=== PATIENT | male | born 1950 | race Hispanic/Latino ===

== ENCOUNTER 2017-12-06 12:46 | Inpatient (IN) | payer MEDICARE, OTHER ==
[2017-12-06] MEDS ORDERED: Sodium Chloride 0.9% 1,000 ML IV STA (13:06)
--- NOTE | 2017-12-06 13:08 | ED PDOC ---
HPI: Chest Pain Time Seen by Provider: 12/06/17 12:57 Chief Complaint (Nursing): Chest Pain Chief Complaint (Provider): Chest pain History Per: Patient History/Exam Limitations: no limitations Onset/Duration Of Symptoms: Days (today) Current Symptoms Are (Timing): Gone Now Additional Complaint(s): Pt. with chest pain lasting 15-20 seconds. Diffuse and going to both arms. Randomly comes and goes. Currently no pain. No numbness, tingles, weakness, headaches, dizziness, vision changes. No fever or cough. Past Medical History Reviewed: Nursing Documentation, Vital Signs Vital Signs: Last Vital Signs Temp 97.8 F 12/06/17 12:48 Pulse 81 12/06/17 14:38 Resp 18 12/06/17 14:38 BP 154/88 H 12/06/17 14:38 Pulse Ox 98 12/06/17 14:38 - Medical History PMH: Diverticulitis, GERD, HTN, Kidney Stones - Surgical History Surgical History: No Surg Hx - Family History Family History: States: Unknown Family Hx - Social History Current smoker - smoking cessation education provided: No Alcohol: None Drugs: Denies - Home Medications Home Medications: Ambulatory Orders Medication Instructions Recorded Acyclovir [Acyclovir] 400 mg PO DAILY 12/30/14 Azathioprine [Azathioprine] 2 tab PO DAILY 12/30/14 Ciprofloxacin HCl [Cipro] 500 mg PO BID #20 tab 12/30/14 Metronidazole [Flagyl] 500 mg PO TID #30 tab 12/30/14 Pantoprazole Sodium [Pantoprazole 40 mg PO DAILY 12/30/14 Sodium] Quinapril [Accupril] 20 mg PO DAILY 12/30/14 oxyCODONE/Acetaminophen [Percocet 1 tab PO Q6H PRN #10 tab 12/30/14 5/325 mg Tab] - Allergies Allergies/Adverse Reactions: Allergies Allergy/AdvReac Type Severity Reaction Status Date / Time No Known Allergies Allergy Verified 12/30/14 03:42 Review of Systems ROS Statement: Except As Marked, All Systems Reviewed And Found Negative Cardiovascular: Positive for: Chest Pain Physical Exam - Reviewed Nursing Documentation Reviewed: Yes Vital Signs Reviewed: Yes - Physical Exam Appears: Positive for: Non-toxic, No Acute Distress Head Exam: Positive for: ATRAUMATIC, NORMAL INSPECTION, NORMOCEPHALIC Skin: Positive for: Normal Color, Warm, DRY Eye Exam: Positive for: EOMI, Normal appearance, PERRL ENT: Positive for: Normal ENT Inspection Neck: Positive for: Normal, Painless ROM Cardiovascular/Chest: Positive for: Regular Rate, Rhythm. Negative for: Edema Respiratory: Positive for: CNT, Normal Breath Sounds Gastrointestinal/Abdominal: Positive for: Normal Exam, Soft. Negative for: Tenderness Back: Positive for: Normal Inspection Extremity: Positive for: Normal ROM Neurologic/Psych: Positive for: Alert, Oriented - Laboratory Results Result Diagrams: 12/06/17 13:20 12/06/17 13:20 Interpretation Of Abn Labs: no acute - ECG ECG Rhythm: Positive for: Normal QRS, Sinus Rhythm, Nonspecific Changes ( inferior) O2 Sat by Pulse Oximetry: 98 Pulse Ox Interpretation: Normal - Radiology X-Ray: Read By Radiologist X-Ray Interpretation: No Acute Disease - Progress ED Course And Treament: 1522: Stable. Pain gone now. Considering risk factors for ACS will need admit for further evaluation. Spoke with Dr. Matos. Will admit tele ob. Disposition - Clinical Impression Clinical Impression: Chest pain - Patient ED Disposition Is Patient to be Admitted: Yes Counseled Patient/Family Regarding: Studies Performed, Diagnosis - Disposition Disposition Time: 15:23 Condition: FAIR - Pt Status Changed To: Hospital Disposition Of: Observation - POA Present On Arrival: None
[2017-12-06] MEDS ORDERED: Aspirin 325 mg EC Tablets PO ONE (13:27)
[2017-12-06 13:40] LABS: BASO % 0.5 % (0.0-2.0); EOS % 0.8 % (0.0-4.0); HEMOGLOBIN 14.1 g/dL (12.0-18.0); LYMPH # 0.7 K/uL (1.0-4.3); MEAN CELL VOLUME 93.8 fl (80.0-94.0); MEAN CORPUSCULAR HEMOGLOBIN 31.9 pg (27.0-31.0); MEAN PLATELET VOLUME 8.2 fl (7.2-11.7); MONO # 0.3 K/uL (0.0-0.8); MONO % 4.7 % (0.0-10.0); NEUT # 4.4 K/uL (1.8-7.0); NRBC % 0.1 % (0.0-0.0); RBC 4.42 Mil/uL (4.40-5.90); RED CELL DISTRIBUTION WIDTH 14.1 % (11.5-14.5); WHITE BLOOD COUNT 5.5 K/uL (4.8-10.8)
[2017-12-06 13:48] LABS: PARTIAL THROMBOPLASTIN TIME 32.5 Seconds (25.6-37.1); PROTHROMBIN TIME 11.5 Seconds (9.8-13.1)
--- NOTE | 2017-12-06 14:11 | RAD ---
HISTORY: dyspnea COMPARISON: No prior. FINDINGS: LUNGS: No active pulmonary disease. PLEURA: No significant pleural effusion identified, no pneumothorax apparent. CARDIOVASCULAR: Normal. OSSEOUS STRUCTURES: No significant abnormalities. VISUALIZED UPPER ABDOMEN: Normal. OTHER FINDINGS: None. IMPRESSION: No acute cardiopulmonary disease appreciated.
[2017-12-06 14:13] LABS: ALB/GLOB RATIO 1.4 (1.0-2.1); ALBUMIN 4.1 g/dL (3.5-5.0); ALT/SGPT 40 U/L (21-72); AST/SGOT 25 U/L (17-59); BLOOD UREA NITROGEN 16 mg/dl (9-20); CALCIUM 9.2 mg/dL (8.4-10.2); GFR AFRICAN-AMERICAN > 60; GFR NON-AFRICAN AMERICAN > 60; LIPASE 62 U/L (23-300)
--- NOTE | 2017-12-06 17:50 | CP.PCM.HP ---
History of Present Illness - History of Present Illness History of Present Illness: 67 YR OLD MALE WHO PRESENTED WITH CHEST PAIN ACROSS THE CHEST WALL AND RADIATING TO THE FINGERS AND JAW X SEVERAL TIMES ON THE DAY OF ADMISSION.HX OF SIMILAR EPISODE SEVERAL YRS AGO BUT DID NOT SEEK HELP. NO SOB OR PALPITATIONS.PRESENTLY IS PAIN FREE. Present on Admission - Present on Admission Any Indicators Present on Admission: No Past Patient History - Past Social History Alcohol: None Drugs: Denies - CARDIAC Hx Cardiac Disorders: Yes - RENAL Hx Kidney Stones: Yes - GASTROINTESTINAL Hx Diverticulitis: Yes - PSYCHIATRIC Hx Substance Use: No Meds Allergies/Adverse Reactions: Allergies Allergy/AdvReac Type Severity Reaction Status Date / Time No Known Allergies Allergy Verified 12/30/14 03:42 Physical Exam - Constitutional Appears: No Acute Distress - Head Exam Head Exam: ATRAUMATIC, NORMAL INSPECTION, NORMOCEPHALIC - Eye Exam Eye Exam: EOMI, Normal appearance, PERRL Pupil Exam: NORMAL ACCOMODATION, PERRL - ENT Exam ENT Exam: Mucous Membranes Moist, Normal Exam - Neck Exam Neck exam: Positive for: Normal Inspection - Respiratory Exam Respiratory Exam: Clear to Auscultation Bilateral, NORMAL BREATHING PATTERN - Cardiovascular Exam Cardiovascular Exam: REGULAR RHYTHM - GI/Abdominal Exam GI & Abdominal Exam: Normal Bowel Sounds, Soft. absent: Tenderness - Rectal Exam Rectal Exam: NORMAL INSPECTION - Extremities Exam Extremities exam: Positive for: normal inspection - Back Exam Back exam: NORMAL INSPECTION - Neurological Exam Neurological exam: Alert, CN II-XII Intact, Normal Gait, Oriented x3, Reflexes Normal - Psychiatric Exam Psychiatric exam: Normal Affect, Normal Mood - Skin Skin Exam: Dry, Intact, Normal Color, Warm Results - Vital Signs Recent Vital Signs: Last Vital Signs Temp 98.3 F 12/06/17 17:26 Pulse 69 12/06/17 17:26 Resp 16 12/06/17 17:26 BP 156/81 H 12/06/17 17:26 Pulse Ox 96 12/06/17 17:26 - Labs Result Diagrams: 12/06/17 13:20 12/06/17 13:20 Labs: Laboratory Results - last 24 hr 12/06/17 12/06/17 12/06/17 13:20 13:20 13:20 WBC 5.5 RBC 4.42 Hgb 14.1 Hct 41.4 MCV 93.8 MCH 31.9 H MCHC 34.0 RDW 14.1 Plt Count 199 MPV 8.2 Neut % (Auto) 81.0 H Lymph % (Auto) 13.0 L Dickinson % (Auto) 4.7 Eos % (Auto) 0.8 Baso % (Auto) 0.5 Neut # (Auto) 4.4 Lymph # (Auto) 0.7 L Dickinson # (Auto) 0.3 Eos # (Auto) 0.0 Baso # (Auto) 0.0 PT 11.5 INR 1.0 APTT 32.5 Sodium 140 Potassium 4.2 Chloride 104 Carbon Dioxide 21 L Anion Gap 19 BUN 16 Creatinine 0.7 L Est GFR ( Amer) > 60 Est GFR (Non-Af Amer) > 60 Random Glucose 129 H Calcium 9.2 Total Bilirubin 0.7 AST 25 ALT 40 Alkaline Phosphatase 66 Troponin I < 0.0120 Total Protein 7.2 Albumin 4.1 Globulin 3.0 Albumin/Globulin Ratio 1.4 Lipase 62 Assessment & Plan - Assessment and Plan (Free Text) Assessment: CHEST PAIN--R/O ACUTE CORONARY SYNDROME HYPERTENSION Plan: CARDIOLOGY EVAL MONITOR IN TELEMETRY SEE ORDERS - Date & Time Date: 12/06/17 Time: 17:52
[2017-12-07 05:43] LABS: HDL CHOLESTEROL 50 MG/DL (30-70)
[2017-12-07 05:53] LABS: LDL CHOLESTEROL 93 mg/dL (0-129)
--- NOTE | 2017-12-07 08:15 | CARD ---
APPROVED REPORT EKG Measurement Heart [id number] 150P29 [id number] <Conclusion> Normal sinus rhythm Nonspecific ST abnormality Abnormal ECG
--- NOTE | 2017-12-07 08:26 | CARD ---
APPROVED REPORT EKG Measurement Heart [id number] 152P51 [id number] <Conclusion> Normal sinus rhythm with sinus arrhythmia Cannot rule out Anterior infarct, age undetermined Abnormal ECG
[2017-12-07] MEDS ORDERED: Iodixanol 320 MG/ML 100 ML BOTTLE IV ONE (09:02)
--- NOTE | 2017-12-07 09:34 | CP.PCM.PN ---
Subjective - Date & Time of Evaluation Date of Evaluation: 12/07/17 Time of Evaluation: 09:35 - Subjective Subjective: CHEST PAIN FREE NO SOB/COUGH Objective - Vital Signs/Intake and Output Vital Signs (last 24 hours): Temp Pulse Resp BP Pulse Ox 98.5 F 69 20 154/71 H 98 12/07/17 08:19 12/07/17 08:19 12/07/17 08:19 12/07/17 08:19 12/07/17 08:19 - Medications Medications: Current Medications Amlodipine Besylate (Norvasc) 5 mg PO DAILY [facility] Aspirin (Aspirin Chewable) 81 mg PO DAILY [facility] Enoxaparin Sodium (Lovenox) 40 mg SC DAILY [facility] PRN Reason: Protocol Lisinopril (Zestril) 40 mg PO DAILY [facility] - Labs Labs: 12/06/17 13:20 12/06/17 13:20 PT 11.5 Seconds (9.8-13.1) 12/06/17 13:20 INR 1.0 (0.9-1.2) 12/06/17 13:20 APTT 32.5 Seconds (25.6-37.1) 12/06/17 13:20 - Constitutional Appears: No Acute Distress - Head Exam Head Exam: ATRAUMATIC, NORMAL INSPECTION, NORMOCEPHALIC - Eye Exam Eye Exam: EOMI, Normal appearance, PERRL Pupil Exam: NORMAL ACCOMODATION, PERRL - ENT Exam ENT Exam: Mucous Membranes Moist, Normal Exam - Neck Exam Neck Exam: Full ROM, Normal Inspection. absent: Lymphadenopathy - Respiratory Exam Respiratory Exam: Clear to Ausculation Bilateral, NORMAL BREATHING PATTERN - Cardiovascular Exam Cardiovascular Exam: REGULAR RHYTHM, +S1, +S2. absent: Murmur - GI/Abdominal Exam GI & Abdominal Exam: Soft, Normal Bowel Sounds. absent: Tenderness - Rectal Exam Rectal Exam: NORMAL INSPECTION - Extremities Exam Extremities Exam: Full ROM, Normal Capillary Refill, Normal Inspection. absent : Joint Swelling, Pedal Edema - Back Exam Back Exam: NORMAL INSPECTION - Neurological Exam Neurological Exam: Alert, Awake, CN II-XII Intact, Normal Gait, Oriented x3 - Psychiatric Exam Psychiatric exam: Normal Affect, Normal Mood - Skin Skin Exam: Dry, Intact, Normal Color, Warm Assessment and Plan - Assessment and Plan (Free Text) Assessment: CHEST PAIN--PPROBABLY ATYPICAL HTN ELEVATED D.DIMER Plan: ECHO CT OF CHEST--R/O PULM EMBOLI AWAIT CARDIAC CLEARANCE D/C TODAY AND REFER TO PMD FOR OUT PT WORKUP IF ALL WORKUP ARE NON-REVEALING
[2017-12-07] MEDS: Enoxaparin 40 mg Syringe SC SCH (10:06)
--- NOTE | 2017-12-07 10:14 | CT ---
PROCEDURE: CT Chest with contrast (Pulmonary Angiogram) HISTORY: r/o PE COMPARISON: CT abdomen and pelvic 12/30/2014 TECHNIQUE: Axial computed tomography images were obtained of the chest in the pulmonary arterial phase of enhancement. Coronal and sagittal reformatted images were created and reviewed. The technologist has informed me that the injection had to be initially stops as the patient had vocalized distress. The technologist's stopped injection and reassess the patient. This no infiltration. According to the technologist the patient stated that he became emotional and was frightened. One injection resumed, the imaging was delayed Intravenous contrast dose: 95 mL of Visipaque 320 Radiation dose: Total exam DLP = 819 mGy-cm. This CT exam was performed using one or more of the following dose reduction techniques: Automated exposure control, adjustment of the mA and/or kV according to patient size, and/or use of iterative reconstruction technique. FINDINGS: PULMONARY ARTERIES: Unremarkable as visualized. No appreciated central or segmental pulmonary embolism. AORTA: No acute findings. No thoracic aortic aneurysm. LUNGS: Unremarkable. No nodule, mass or pulmonary consolidation. PLEURAL SPACES: Unremarkable. No effusion or pneuomothorax. HEART: Unremarkable. No cardiomegaly. No significant pericardial effusion. LYMPH NODES: No lymphadenopathy. BONES, CHEST WALL: Unremarkable. No fracture or destructive lesion OTHER FINDINGS: There are approximately 5 sub cm benign-appearing hepatic hypodensities these appear similar to 12/30/2014 CT abdomen and pelvic exam the most cephalad focus measuring approximately 4 mm near the anterior right hepatic superior border is probably faintly seen on the prior 2015 series 2, image 31 study. Other foci are inferior to this within the right hepatic lobe. Tiny liver cysts are compatible with the appearances. This length of stability supports benign etiology. Intrinsic diffuse fatty infiltration of the liver also suggested IMPRESSION: No central or segmental apparent pulmonary embolus. Etiology for example benign liver cyst No pulmonary consolidation or pulmonary mass appreciated. No suspect lymphadenopathy. No dissection or aneurysm appreciated Diffuse fatty infiltration liver - right hepatic lobe hypodensities - stable in appearance -dating back to 2014 supporting benignity
--- NOTE | 2017-12-07 10:33 | CARD ---
APPROVED REPORT EXAM: Two-dimensional and M-mode echocardiogram with Doppler and color Doppler. Other Information Quality : GoodRhythm : NSR INDICATION Chest Pain 2D DIMENSIONS IVSd0.95 (0.7-1.1cm)LVDd4.47 (3.9-5.9cm) LVOT Diameter2.23 (1.8-2.4cm)PWd1.27 (0.7-1.1cm) IVSs1.53 (0.8-1.2cm)LVDs2.23 (2.5-4.0cm) FS (%) 50.3 %PWs1.35 (0.8-1.2cm) M-Mode DIMENSIONS Left Atrium (MM)4.84 (2.5-4.0cm)IVSd1.28 (0.7-1.1cm) Aortic Root3.41 (2.2-3.7cm)LVDd5.19 (4.0-5.6cm) Aortic Cusp Exc.1.78 (1.5-2.0cm)PWd1.22 (0.7-1.1cm) IVSs1.72 cmFS (%) 54 % LVDs2.38 (2.0-3.8cm)PWs1.78 cm Mitral Valve MV E Gotvdvhe78.6cm/sMV DECEL [id number] A Tjdbouci02.6cm/s MV UBM63fqN/A ratio0.8MVA (PHT)3.16cm2 TDI Lateral E' Peak V9.78cm/sMedial E' Peak V7.99cm/sE/Lateral E'7.3 E/Medial E'9.0 Pulmonary Valve PV Peak Csrvozcr630.2cm/s LEFT VENTRICLE The left ventricle is normal size. There is normal left ventricular wall thickness. Left ventricle systolic function is normal. The Ejection Fraction is >70%. There is normal LV segmental wall motion. Transmitral Doppler flow pattern is Grade I-abnormal relaxation pattern. RIGHT VENTRICLE The right ventricle is normal size. There is normal right ventricular wall thickness. The right ventricular systolic function is normal. ATRIA The left atrium size is normal. The right atrium size is normal. AORTIC VALVE The aortic valve is normal in structure. No aortic regurgitation is present. There is no aortic valvular stenosis. MITRAL VALVE The mitral valve is normal in structure. There is no evidence of mitral valve prolapse. There is no mitral valve stenosis. There is no mitral valve regurgitation noted. TRICUSPID VALVE The tricuspid valve is normal in structure. There is no tricuspid valve regurgitation noted. PULMONIC VALVE The pulmonary valve is normal in structure. There is no pulmonic valvular regurgitation. GREAT VESSELS The aortic root is normal in size. The IVC was not visualized. PERICARDIAL EFFUSION The pericardium appears normal. <Conclusion> There is normal left ventricular wall thickness. There is normal LV segmental wall motion. Left ventricle systolic function is normal. The Ejection Fraction is >70%. Transmitral Doppler flow pattern is Grade I-abnormal relaxation pattern.
--- NOTE | 2017-12-07 23:41 | CON ---
CARDIOLOGY CONSULTATION DATE: REASON FOR CONSULTATION: Chest pain. 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 The patient stated that his first episode was recently in [place] while having breakfast and he described as chest tightness spreading all over the chest and radiating to both arms. The pain lasted few seconds and then resolved by itself. The patient drove home from [place] for 11 hours with the help of his daughter and did experience recurrent episodes of chest pain in the similar fashion and most recent one when he was in [facility] picking up an art work, at that time he asked his daughter to bring him to the emergency room. The patient is unaware of any prior cardiac history. The patient denies any associated diaphoresis as well as chest pain. SOCIAL HISTORY: The patient is a nonsmoker. 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 MEDICATIONS: Aspirin 81 mg once a day, Lovenox 40 mg subcutaneously once a day, Norvasc 5 mg once a day, and Zestril 40 mg once a day. REVIEW OF SYSTEMS: No nausea or vomiting. No dizziness or syncope. PHYSICAL EXAMINATION: GENERAL: The patient is a middle-age male who does not appear to be in any distress. VITAL SIGNS: Blood pressure 133/72, heart rate 59, temperature 98.8, and respirations 20. HEENT: Normocephalic. NECK: No JVD. CHEST: Clear. HEART: S1 and S2 regular. ABDOMEN: Soft. EXTREMITIES: No edema. LABORATORY DATA: EKG revealed sinus rhythm with nonspecific ST-T wave changes. CBC; WBC 5.5, hemoglobin 14.1, hematocrit 41.4, and platelet count 199,000. SMA-7; sodium 140, potassium 4.2, chloride 104, CO2 of 21, glucose 129, BUN 16, and creatinine 0.7. Two sets of tropoinins are negative. D-dimer is elevated to 170. PT, INR, and PTT are within normal limits. Chest CT angio revealed no central or segmental pulmonary embolus. No pulmonary consolidation or pulmonary mass appreciated. No suspected lymphadenopathy. No dissection or aneurysm appreciated. Echocardiographic study revealed normal left ventricular wall thickness, normal segmental wall motion, and ejection fraction estimated at 70%. ASSESSMENT: 1. Typical chest pain, myocardial infarction ruled out. 2. Hypertension. 3. Abnormal electrocardiogram with nonspecific ST-T wave changes. 4. Rule out underlying diabetes mellitus. RECOMMENDATIONS: Continue current aspirin 81 mg once a day, subcutaneous Lovenox 40 mg once a day, Norvasc 5 mg once a day, and Zestril 40 mg once a day. The patient will be scheduled for exercise Myoview stress test tomorrow. Malcom Garrido MD
[2017-12-08 08:12] VITALS: RESP 20
--- NOTE | 2017-12-08 08:36 | CP.PCM.PN ---
Subjective - Date & Time of Evaluation Date of Evaluation: 12/08/17 Time of Evaluation: 08:38 - Subjective Subjective: CHEST PAIN FREE NO SOB SCHEDULED FOR STRESS TEST TODAY BECAUSE OF AN ABNORMAL EKG Objective - Vital Signs/Intake and Output Vital Signs (last 24 hours): Temp Pulse Resp BP Pulse Ox 98.5 F 68 20 137/76 98 12/08/17 08:12 12/08/17 08:12 12/08/17 08:12 12/08/17 08:12 12/08/17 08:12 - Medications Medications: Current Medications Amlodipine Besylate (Norvasc) 5 mg PO DAILY [facility] BEDS AT [facility] Last Admin: 12/07/17 10:07 Dose: 5 mg Aspirin (Aspirin Chewable) 81 mg PO DAILY [facility] 234 BEDS AT THE [facility] Last Admin: 12/07/17 10:06 Dose: 81 mg Enoxaparin Sodium (Lovenox) 40 mg SC DAILY [facility] 234 BEDS AT THE [facility] PRN Reason: Protocol Last Admin: 12/07/17 10:06 Dose: 40 mg Lisinopril (Zestril) 40 mg PO DAILY [facility] 234 BEDS AT [facility] Last Admin: 12/07/17 10:08 Dose: 40 mg - Labs Labs: 12/06/17 13:20 12/06/17 13:20 PT 11.5 Seconds (9.8-13.1) 12/06/17 13:20 INR 1.0 (0.9-1.2) 12/06/17 13:20 APTT 32.5 Seconds (25.6-37.1) 12/06/17 13:20 - Constitutional Appears: No Acute Distress - Head Exam Head Exam: ATRAUMATIC, NORMAL INSPECTION, NORMOCEPHALIC - Eye Exam Eye Exam: EOMI, Normal appearance, PERRL Pupil Exam: NORMAL ACCOMODATION, PERRL - ENT Exam ENT Exam: Mucous Membranes Moist, Normal Exam - Neck Exam Neck Exam: Full ROM, Normal Inspection. absent: Lymphadenopathy - Respiratory Exam Respiratory Exam: Clear to Ausculation Bilateral, NORMAL BREATHING PATTERN - Cardiovascular Exam Cardiovascular Exam: REGULAR RHYTHM, +S1, +S2. absent: Murmur - GI/Abdominal Exam GI & Abdominal Exam: Soft, Normal Bowel Sounds. absent: Tenderness - Rectal Exam Rectal Exam: NORMAL INSPECTION - Extremities Exam Extremities Exam: Full ROM, Normal Capillary Refill, Normal Inspection. absent : Joint Swelling, Pedal Edema - Back Exam Back Exam: NORMAL INSPECTION - Neurological Exam Neurological Exam: Alert, Awake, CN II-XII Intact, Normal Gait, Oriented x3 - Psychiatric Exam Psychiatric exam: Normal Affect, Normal Mood - Skin Skin Exam: Dry, Intact, Normal Color, Warm Assessment and Plan - Assessment and Plan (Free Text) Assessment: CHEST PAIN--R/O ACS HTN Plan: AWAIT RESULT OF STRESS TEST BEFORE DECIDING ON DISPOSITION
--- NOTE | 2017-12-08 11:42 | CARD ---
APPROVED REPORT Protocol: ABILIO Test Type: Stress Nuclear Medications: ASA 81MG, LOVENOX 40MG, NORVASC 5MG, ZESTRIL 40MG, Medical History: ANGINA, HYPERTENSION Target HR: 155 bpm Resting ECG: normal Resting Heart Rate: 82 bpm Resting Blood Pressure: 142/72mmHg submaximum (85%): 132 bpm TEST SUMMARY [id number]/72.0. [id number]/[id number]. PRETESTHYPERV.00:[id number]/72.0. PRETESTWARM-UP00:[id number]/72.0. EXERCISESTAGE 103:[id number]/70.0. EXERCISESTAGE 203:[id number]/80.0. EXERCISESTAGE 301:[id number]/80.8. [id number]/70.0. POST EXERCISE Reason for Termination: Fatigue Target HR: Yes Max HR: 164 bpm 109% of Maximum Predicted HR: 155 bpm Exercise duration: 07:31 min:sec, 3 Stage Exercise capacity: 9.3METs Max Blood Pressure: 210/80mmHg Blood Pressure response to exercise: normal resting BP - appropriate response Heart Rate response to exercise: appropriate Chest Pain: No, none Angina index: 0 Arrhythmia: No, none ST Change: Yes, Depression upsloping Deviation: 0 mm Clinical Indications Under Appropriate Use Criteria This 67-year-old man a hypertensive was hospitalized with complaints of chest discomfort occurred at rest lasting approximately 20 seconds and electrocardiograms and troponin levels were ruled out evidence of acute coronary syndrome and the patient underwent this examination to evaluate him for possible coronary artery disease and myocardial ischemia. The patient is extremely active and walks briskly approximately 10-12 blocks each weight during his daily commute without any difficulty. His resting electric cardiogram showed sinus rhythm at 71 bpm with a normal EKG pattern. His resting blood pressure was 142/72 mmHg. His cardiac auscultation was unremarkable. Stress EKG Interpretation The patient underwent a resting myocardial scan after 10 mCi of sestamibi was given intravenously followed 45 minutes later by myocardial scanning. An hour and a half from the initial administration of sestamibi, the patient underwent an exercise test on Abilio protocol during which she was able to finish 1 minute and 31 seconds of stage III effort when severe fatigue forced an end to exercise. There was no chest pain the electrocardiogram showed an up for sloping ST depression in leads 2, 3, aVF as well as V4 to V6. The peak heart rate achieved was 169 bpm which corresponded to 92% of his predicted max. 200/80 mmHg. There were rare isolated premature ventricular beats during cool off. The peak workload achieved was 9.3 METS. The patient was given 30 mCi of sestamibi intravenously 30 seconds prior to the termination of exercise. Upon termination of exercise, his heart rate and blood pressure recovery were normal. The patient left the stress lab symptom free and hemodynamically stable. 45 minutes later the patient underwent a repeat myocardial scan. The 2 sets of images for process. Gated and planar images were acquired. Tomographic images were examined. EXAM: Myocardial Perfusion REST/STRESS Image QualityGOOD Imaging Protocol The imaging protocol used to acquire images was Rest Tc-99m/stress Tc-99m 1 day Rest Spect myocardial perfusion imaging was performed in supine position 41 minutes following the injection of 10 mCi of Tc-99 Myoview. Time of rest injection: 7:34 Time of rest imagin:45 At peak stress, the patient was injected intravenously with 30mCi of Tc-99 tetrofosmin after an infusion time of minutes and seconds. Time of stress injection: 9:38 Time of stress imagin:50 Gated Stress Spect was performed 72 minutes after intravenous Tc-99 Myoview injection. The images were gated to evaluate regional wall motion and calculate ventricular ejection fraction. LV Perfusion There was a mild degree of diaphragmatic attenuation artifact superimposed on the images. Otherwise, both the resting and post exercise images showed normal regional sestamibi uptake. Wall Motion Gated images showed a normal-sized left ventricle with normal regional wall motion and wall thickening. His resting left ventricular ejection fraction was 74%. CONCLUSION 1. The patient had an excellent effort tolerance. His blood pressure response to exercise was mildly hypertensive. At 92% of his predicted maximum heart rate, no evidence of myocardial ischemia was detected. His resting left ventricular ejection fraction was 74%. Recommendation Continued to manage coronary risk factors.
[2017-12-08] MEDS: Enoxaparin 40 mg Syringe SC SCH (12:00)
[2017-12-08 12:02] VITALS: BP 147/77; PULSE 73
[2017-12-08 12:36] VITALS: TEMP 98.2; O2SAT 97
--- NOTE | 2017-12-09 04:38 | PN ---
DATE: 12/08/2017 SUBJECTIVE: The patient underwent treadmill stress test. The patient achieved 92% of maximal heart rate. The official report of the stress test is the patient has excellent effort tolerance, no evidence of myocardial ischemia and the patient is to continue to manage coronary risk factors. Myoview of the EKG changes revealed 1.[address]-segment depression at peak exercise,BC_ILT which was an equivocal finding. The patient, following the stress test, had an episode of retrosternal chest pain. PHYSICAL EXAMINATION: VITAL SIGNS: Blood pressure 114/77, heart rate 73, temperature 98.5, and respirations 20. HEENT: Normocephalic. CHEST: Clear. HEART: S1 and S2 regular. ABDOMEN: Soft. EXTREMITIES: No edema. ASSESSMENT: 1. Chest pain, myocardial infarction is ruled out. 2. 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 RECOMMENDATIONS: Continue aspirin 81 mg once a day, Norvasc 5 mg once a day, Zestril at 40 mg once a day. Start Lipitor 20 mg once a day. The patient was advised to follow up with his primary physician and we are going to give him a copy of his Myoview stress test. Malcom Garrido MD
--- NOTE | 2017-12-09 07:21 | CARD ---
APPROVED REPORT EKG Measurement Heart [id number] <Conclusion> Sinus bradycardia Nonspecific ST abnormality Abnormal ECG
--- NOTE | 2017-12-09 10:58 | CP.PCM.DIS ---
Provider - Provider Date of Admission: 12/07/17 17:40 Attending physician: Omar Matos MD Diagnosis - Discharge Diagnosis (1) Hypertension Status: Acute (2) Chest pain Status: Acute Hospital Course - Lab Results Lab Results: Most Recent Lab Values WBC 5.5 K/uL (4.8-10.8) 12/06/17 13:20 RBC 4.42 Mil/uL (4.40-5.90) 12/06/17 13:20 Hgb 14.1 g/dL (12.0-18.0) 12/06/17 13:20 Hct 41.4 % (35.0-51.0) 12/06/17 13:20 MCV 93.8 fl (80.0-94.0) 12/06/17 13:20 MCH 31.9 pg (27.0-31.0) H 12/06/17 13:20 MCHC 34.0 g/dL (33.0-37.0) 12/06/17 13:20 RDW 14.1 % (11.5-14.5) 12/06/17 13:20 Plt Count 199 K/uL (130-400) 12/06/17 13:20 MPV 8.2 fl (7.2-11.7) 12/06/17 13:20 Neut % (Auto) 81.0 % (50.0-75.0) H 12/06/17 13:20 Lymph % (Auto) 13.0 % (20.0-40.0) L 12/06/17 13:20 Mcleod % (Auto) 4.7 % (0.0-10.0) 12/06/17 13:20 Eos % (Auto) 0.8 % (0.0-4.0) 12/06/17 13:20 Baso % (Auto) 0.5 % (0.0-2.0) 12/06/17 13:20 Neut # (Auto) 4.4 K/uL (1.8-7.0) 12/06/17 13:20 Lymph # (Auto) 0.7 K/uL (1.0-4.3) L 12/06/17 13:20 Mcleod # (Auto) 0.3 K/uL (0.0-0.8) 05/22/18 13:20 Eos # (Auto) 0.0 K/uL (0.0-0.7) 12/06/17 13:20 Baso # (Auto) 0.0 K/uL (0.0-0.2) 12/06/17 13:20 PT 11.5 Seconds (9.8-13.1) 12/06/17 13:20 INR 1.0 (0.9-1.2) 12/06/17 13:20 APTT 32.5 Seconds (25.6-37.1) 12/06/17 13:20 D-Dimer, Quantitative 270 ng/mlDDU (0-230) H 12/06/17 18:30 Sodium 140 mmol/l (132-148) 12/06/17 13:20 Potassium 4.2 MMOL/L (3.6-5.0) 12/06/17 13:20 Chloride 104 mmol/L (98-107) 12/06/17 13:20 Carbon Dioxide 21 mmol/L (22-30) L 12/06/17 13:20 Anion Gap 19 (10-20) 12/06/17 13:20 BUN 16 mg/dl (9-20) 12/06/17 13:20 Creatinine 0.7 mg/dl (0.8-1.5) L 12/06/17 13:20 Est GFR ( Amer) > 60 12/06/17 13:20 Est GFR (Non-Af Amer) > 60 12/06/17 13:20 Random Glucose 129 mg/dL (75-110) H 12/06/17 13:20 Calcium 9.2 mg/dL (8.4-10.2) 12/06/17 13:20 Total Bilirubin 0.7 mg/dl (0.2-1.3) 12/06/17 13:20 AST 25 U/L (17-59) 12/06/17 13:20 ALT 40 U/L (21-72) 12/06/17 13:20 Alkaline Phosphatase 66 U/L (38-126) 12/06/17 13:20 Troponin I < 0.0120 ng/mL (0.00-0.120) 12/08/17 11:55 Total Protein 7.2 G/DL (6.3-8.2) 12/06/17 13:20 Albumin 4.1 g/dL (3.5-5.0) 12/06/17 13:20 Globulin 3.0 gm/dL (2.2-3.9) 12/06/17 13:20 Albumin/Globulin Ratio 1.4 (1.0-2.1) 12/06/17 13:20 Triglycerides 88 mg/DL (0-149) 12/07/17 05:00 Cholesterol 163 mg/dL (0-199) 12/07/17 05:00 LDL Cholesterol Direct 93 mg/dL (0-129) 12/07/17 05:00 HDL Cholesterol 50 MG/DL (30-70) 12/07/17 05:00 Lipase 62 U/L (23-300) 12/06/17 13:20 - Hospital Course Hospital Course: CHEST PAIN RESOLVED STRESS TEST--NEGATIVE FOR ISCHEMIA Discharge Exam - Head Exam Head Exam: ATRAUMATIC, NORMAL INSPECTION, NORMOCEPHALIC Discharge Plan - Follow Up Plan Condition: FAIR Disposition: HOME/ ROUTINE Instructions: Chest Pain (DC) Additional Instructions: follow up with pmd in 1 week Referrals: Malcom Garrido MD [Staff Provider] -
== END 2017-12-08 14:31 | disposition home or self-care (01) | DRG 313 ==
LOC: H.ER 12:46 → INTOOBSV 15:19 → OBSVTOIN 15:19 → UNDOADMOB 15:19 → H.ERHOLD 15:19 → H.TEL 17:14 → OBSVTOIN 12-07 17:40
PROVIDERS: ADMIT Internal Medicine Pulmonary Disease; ATTEND Internal Medicine Pulmonary Disease
DX: R07.89 Other chest pain (principal); R94.31 Abnormal electrocardiogram [ECG] [EKG]; I10 Essential (primary) hypertension; R79.1 Abnormal coagulation profile; Z87.442 Personal history of urinary calculi; K21.9 Gastro-esophageal reflux disease without esophagitis

== ENCOUNTER 2017-12-09 08:30 | Emergency (ER) | payer OTHER, MEDICARE ==
[2017-12-09 08:42] VITALS: BP 150/80; PULSE 81; TEMP 98.4
[2017-12-09 08:47] VITALS: BMI 26.6
[2017-12-09 08:56] VITALS: RESP 17; O2SAT 100
[2017-12-09 09:26] LABS: BASO # 0.1 K/uL (0.0-0.2); BASO % 0.9 % (0.0-2.0); EOS # 0.1 K/uL (0.0-0.7); EOS % 0.9 % (0.0-4.0); HEMOGLOBIN 14.7 g/dL (12.0-18.0); LYMPH # 0.8 K/uL (1.0-4.3); LYMPH % 13.4 % (20.0-40.0); MEAN CORPUSCULAR HEMOGLOBIN 32.2 pg (27.0-31.0); MEAN PLATELET VOLUME 8.2 fl (7.2-11.7); MONO # 0.6 K/uL (0.0-0.8); MONO % 9.3 % (0.0-10.0); NEUT # 4.6 K/uL (1.8-7.0); NEUT % 75.5 % (50.0-75.0); NRBC % 0.1 % (0.0-0.0); RBC 4.58 Mil/uL (4.40-5.90); RED CELL DISTRIBUTION WIDTH 13.7 % (11.5-14.5); WHITE BLOOD COUNT 6.1 K/uL (4.8-10.8)
--- NOTE | 2017-12-09 09:27 | ED PDOC ---
HPI: SOB/CHF/COPD Time Seen by Provider: 12/09/17 08:49 Chief Complaint (Nursing): Shortness Of Breath History Per: Patient Onset/Duration Of Symptoms: Hrs (1) Current Symptoms Are (Timing): Better Severity: Moderate Additional Complaint(s): Numbness and tingling of fingertips bilat assoc with SOB and anxiety this AM. Denies chest pain. Had been going up and down steps earlier without sxs. Recently admitted here with chest pain with w/u including nuclear stress test nl. Past Medical History Vital Signs: Last Vital Signs Temp 98.4 F 12/09/17 08:41 Pulse 81 12/09/17 08:41 Resp 17 12/09/17 08:54 BP 150/80 12/09/17 08:41 Pulse Ox 100 12/09/17 09:28 - Medical History PMH: Diverticulitis, GERD, HTN, Kidney Stones - Family History Family History: States: Unknown Family Hx - Home Medications Home Medications: Ambulatory Orders Medication Instructions Recorded Azathioprine 100 mg PO DAILY 12/30/14 Acyclovir 400 mg PO DAILY 12/06/17 Cholecalciferol [Vitamin D 1000 IU] 1,000 unit PO DAILY 12/06/17 Glucosa Khan 2Kcl/Chondroitin Khan 3 cap PO DAILY 12/06/17 [Glucosamine & Chondroitin Cap] Lisinopril [Zestril] 40 mg PO DAILY 12/06/17 Ranitidine HCl [Zantac] 150 mg PO BID 12/06/17 amLODIPine [Norvasc] 5 mg PO DAILY 12/06/17 - Allergies Allergies/Adverse Reactions: Allergies Allergy/AdvReac Type Severity Reaction Status Date / Time No Known Allergies Allergy Verified 12/30/14 03:42 Review of Systems ROS Statement: Except As Marked, All Systems Reviewed And Found Negative Respiratory: Positive for: Shortness of Breath Psych: Positive for: Anxiety Physical Exam - Reviewed Nursing Documentation Reviewed: Yes Vital Signs Reviewed: Yes - Physical Exam Appears: Positive for: Non-toxic, No Acute Distress Head Exam: Positive for: ATRAUMATIC, NORMAL INSPECTION, NORMOCEPHALIC Skin: Positive for: Normal Color, Warm, DRY Eye Exam: Positive for: EOMI, Normal appearance, PERRL ENT: Positive for: Normal ENT Inspection Neck: Positive for: Normal, Painless ROM Cardiovascular/Chest: Positive for: Regular Rate, Rhythm. Negative for: Chest Non Tender Respiratory: Positive for: CNT, Normal Breath Sounds Gastrointestinal/Abdominal: Positive for: Normal Exam, Soft Back: Positive for: Normal Inspection Extremity: Positive for: Normal ROM Neurologic/Psych: Positive for: Alert, Oriented - Laboratory Results Result Diagrams: 12/09/17 09:12 12/09/17 09:12 - ECG O2 Sat by Pulse Oximetry: 100 Medical Decision Making Medical Decision Making: Discussed with PMD Dr. Martinez [phone]. Does not feel that sxs are caediac related. Pt can be discharged and she will follow up as outpt. Disposition - Clinical Impression Clinical Impression: Radiculopathy affecting upper extremity, Anxiety - Patient ED Disposition Is Patient to be Admitted: No Counseled Patient/Family Regarding: Studies Performed, Diagnosis, Need For Followup, Rx Given - Disposition Disposition: Routine/Home Disposition Time: 09:56 Condition: FAIR Instructions: Radiculopathy, Anxiety, Adult (DC) Forms: [employer] ([place])
[2017-12-09 09:37] LABS: ALBUMIN 4.5 g/dL (3.5-5.0); BLOOD UREA NITROGEN 21 mg/dl (9-20); CALCIUM 9.8 mg/dL (8.4-10.2); GFR AFRICAN-AMERICAN > 60; GFR NON-AFRICAN AMERICAN > 60
[2017-12-09 09:38] LABS: ALB/GLOB RATIO 1.5 (1.0-2.1); ALT/SGPT 41 U/L (21-72); AST/SGOT 26 U/L (17-59)
--- NOTE | 2017-12-10 11:00 | CARD ---
APPROVED REPORT EKG Measurement Heart [id number] <Conclusion> Normal sinus rhythm Cannot rule out Anterior infarct, age undetermined Abnormal ECG
== END 2017-12-09 10:16 | disposition home or self-care (01) ==
LOC: H.ER 08:30
DX: M54.12 Radiculopathy, cervical region (principal); F41.9 Anxiety disorder, unspecified; R20.2 Paresthesia of skin; I10 Essential (primary) hypertension; J44.9 Chronic obstructive pulmonary disease, unspecified; K21.9 Gastro-esophageal reflux disease without esophagitis